=== PATIENT | male | born 1955 | race Caucasian/White ===

== ENCOUNTER 2020-12-03 13:46 | Inpatient (IN) | payer OTHER ==
[~2020-12-03] VITALS: Ht 180.3 cm; Wt 83.7 kg
--- NOTE | 2020-12-03 13:55 | NUR ---
CECY RN: DELAY IN EKG D/T TREMOR. TECH TO ATTEMPT IN ROOM
--- NOTE | 2020-12-03 14:13 | NUR ---
PT BIB SON VIA POV. PER PT HE HAS BEEN SOB X TWO WEEKS, WORSENING TODAY. +PRODUCTIVE COUGH, CHILLS, FEVER, AND CHEST PAIN. PT ALSO REPORTS TAKING TYLENOL THIS AM. PT RESTING IN RNEY, MONITORING IN PLACE, EKG DONE, NADN AT THIS TIME, PT PLACED ON 1L O2 NC, OX SAT NOW AT 96%, DR. SPENCER AT BEDSIDE, [facility].
[2020-12-03] MEDS ORDERED: ACETAMINOPHEN 500 MG TABLET ONE (14:23)
[2020-12-03] MEDS ORDERED: ACETAMINOPHEN 500 MG TABLET PO ONE (14:30)
[2020-12-03] MEDS ORDERED: CEFTRIAXONE PMX 1GM/50ML 50 ML ONE (14:50)
[2020-12-03 15:00] LABS: BASOPHILS % (AUTO) 0 % (0-1); EOSINOPHILS % (AUTO) 0 % (1-7); LYMPHOCYTES % (AUTO) 5 % (22-44); MEAN CORPUSCULAR HEMOGLOBIN 29.7 pg (27.5-34.5); MEAN PLATELET VOLUME 8.4 fL (7.4-10.4); MONOCYTES % (AUTO) 5 % (2-9); NEUTROPHILS % (AUTO) 90 % (42-75); PLATELET COUNT 307 x10^3/uL (130-400); RED BLOOD COUNT 4.16 x10^6/uL (4.38-5.82); RED CELL DISTRIBUTION WIDTH 14.1 % (9.4-14.8)
[2020-12-03] MEDS ORDERED: CEFTRIAXONE PMX 1GM/50ML 50 ML IV ONE (15:00)
[2020-12-03 15:01] LABS: PLATELET (DIC) 310 x10^3/uL (130-400)
[2020-12-03 15:07] LABS: ALANINE AMINOTRANSFERASE 57 U/L (12-78); ALBUMIN 2.6 g/dL (3.4-5.0); ANION GAP 12 mmol/L (5-15); CALCIUM 8.4 mg/dL (8.5-10.1); CHLORIDE 98 mmol/L (98-107); CREATININE 1.06 mg/dL (0.7-1.3)
[2020-12-03 15:12] LABS: D-DIMER (DIC) 1.57 ug/mlFEU (0.00-0.52); PROTIME 11.2 Seconds (9.6-11.5); PTT 29 Seconds (25-31)
[2020-12-03 15:13] LABS: FIBRINOGEN > 713 mg/dL (200-340)
[2020-12-03 15:14] LABS: ALKALINE PHOSPHATASE 98 U/L (45-117); BILIRUBIN,TOTAL 0.5 mg/dL (0.2-1.0); TOTAL PROTEIN 7.5 g/dL (6.4-8.2)
[2020-12-03] MEDS ORDERED: KETOROLAC 30 MG/1 ML IVPush ONE (15:30)
[2020-12-03 15:31] LABS: MD SCAN
[2020-12-03] MEDS ORDERED: OMNIPAQUE 350 MG/ML, 75ML BOTTLE ONE (16:21)
[2020-12-03] MEDS: DOXYCYCLINE 100 MG in DEXTROSE 5% 250 ML IV SCH (16:40)
[2020-12-03] MEDS ORDERED: KETOROLAC 30 MG/1 ML ONE (16:42)
[2020-12-03] MEDS ORDERED: PHARMACY MAY ADJ FOR RENAL FX MC PRN (17:30)
[2020-12-03 18:00] VITALS: BP 105/70
[2020-12-03] MEDS ORDERED: POTASSIUM CHLORIDE 20 MEQ TAB.ER.PRT PO ONE (18:00)
[2020-12-03] MEDS: ENOXAPARIN 80 MG/0.8 ML SQ SCH (18:30)
[2020-12-03] MEDS: CHOLECALCIFEROL 1,000 UNIT TABLET PO SCH (18:41)
[2020-12-03 19:03] VITALS: BP 115/74
[2020-12-03] MEDS: ASCORBIC ACID 500 MG TABLET PO SCH (21:00)
[2020-12-03 22:09] LABS: RAPID INFLUENZA A Negative (Negative); RAPID INFLUENZA B Negative (Negative)
[2020-12-04 02:05] VITALS: BP 131/87
[2020-12-04] MEDS: ACETAMINOPHEN 325 MG TABLET PO PRN ×4 (03:00→20:26)
[2020-12-04] MEDS: DOXYCYCLINE 100 MG in DEXTROSE 5% 250 ML IV SCH ×2 (03:00→17:26)
[2020-12-04 04:54] LABS: BASOPHILS % (AUTO) 0 % (0-1); EOSINOPHILS % (AUTO) 0 % (1-7); LYMPHOCYTES % (AUTO) 7 % (22-44); MEAN CORPUSCULAR HGB CONC 34.1 g/dL (33.2-36.2); MEAN PLATELET VOLUME 8.1 fL (7.4-10.4); MONOCYTES % (AUTO) 5 % (2-9); NEUTROPHILS % (AUTO) 88 % (42-75); PLATELET COUNT 311 x10^3/uL (130-400); RED BLOOD COUNT 3.86 x10^6/uL (4.38-5.82); RED CELL DISTRIBUTION WIDTH 14.5 % (9.4-14.8)
[2020-12-04 04:56] LABS: MD NO
[2020-12-04 05:04] LABS: MICROSCOPIC INDICATED
[2020-12-04 05:09] LABS: CHLORIDE 99 mmol/L (98-107)
[2020-12-04] MEDS: ENOXAPARIN 80 MG/0.8 ML SQ SCH ×2 (05:26→17:26)
[2020-12-04 05:30] LABS: ALANINE AMINOTRANSFERASE 72 U/L (12-78); ALBUMIN 2.5 g/dL (3.4-5.0); ALKALINE PHOSPHATASE 90 U/L (45-117); ANION GAP 8 mmol/L (5-15); BILIRUBIN,TOTAL 0.4 mg/dL (0.2-1.0); CALCIUM 8.5 mg/dL (8.5-10.1); CREATINE KINASE, TOTAL 249 U/L (39-308); CREATININE 1.13 mg/dL (0.7-1.3); TOTAL PROTEIN 7.2 g/dL (6.4-8.2)
[2020-12-04] MEDS ORDERED: LISI20TA21 PO (06:09)
[2020-12-04] MEDS ORDERED: ROSU10TA2 PO (06:09)
[2020-12-04] MEDS ORDERED: BENZONATATE 100 MG CAPSULE PO PRN (06:30)
[2020-12-04 07:45] VITALS: BP 132/83
[2020-12-04] MEDS: ASCORBIC ACID 500 MG TABLET PO SCH ×2 (09:26→20:26)
[2020-12-04] MEDS: ZINC SULFATE 220 MG CAPSULE PO SCH (09:26)
[2020-12-04] MEDS: CHOLECALCIFEROL 1,000 UNIT TABLET PO SCH (09:26)
[2020-12-04 13:08] VITALS: BP 122/77
[2020-12-04] MEDS: BENZONATATE 100 MG CAPSULE PO SCH ×2 (15:32→20:26)
[2020-12-04] MEDS: CEFTRIAXONE PMX 1GM/50ML 50 ML IV SCH (15:32)
[2020-12-04] MEDS ORDERED: IBUPROFEN 200 MG TABLET PO PRN (17:30)
[2020-12-04 19:24] VITALS: BP 108/66
[2020-12-05] MEDS ORDERED: IBUPROFEN 600 MG TABLET ONE (01:06)
[2020-12-05 02:17] VITALS: BP 100/61
[2020-12-05] MEDS: DOXYCYCLINE 100 MG in DEXTROSE 5% 250 ML IV SCH ×2 (04:00→17:39)
[2020-12-05 05:54] LABS: BASOPHILS % (AUTO) 0 % (0-1); EOSINOPHILS % (AUTO) 1 % (1-7); LYMPHOCYTES % (AUTO) 8 % (22-44); MEAN CORPUSCULAR HEMOGLOBIN 30.1 pg (27.5-34.5); MEAN CORPUSCULAR HGB CONC 34.6 g/dL (33.2-36.2); MEAN PLATELET VOLUME 8.5 fL (7.4-10.4); MONOCYTES % (AUTO) 5 % (2-9); NEUTROPHILS % (AUTO) 85 % (42-75); PLATELET COUNT 344 x10^3/uL (130-400); RED BLOOD COUNT 3.99 x10^6/uL (4.38-5.82); RED CELL DISTRIBUTION WIDTH 14.1 % (9.4-14.8)
[2020-12-05 05:56] LABS: MD NO
[2020-12-05 06:10] LABS: CHLORIDE 99 mmol/L (98-107); D-DIMER 1.06 ug/mlFEU (0.00-0.52); INTERNATIONAL NORMALIZED RATIO 1.02 (0.93-1.1); PROTHROMBIN TIME 10.9 Seconds (9.6-11.5)
[2020-12-05 06:13] LABS: FIBRINOGEN > 713 mg/dL (200-340)
[2020-12-05 06:48] LABS: ANION GAP 6 mmol/L (5-15); CALCIUM 8.9 mg/dL (8.5-10.1); CREATINE KINASE, TOTAL 301 U/L (39-308); CREATININE 1.08 mg/dL (0.7-1.3)
[2020-12-05 07:29] VITALS: BP 118/75
[2020-12-05] MEDS: ENOXAPARIN 80 MG/0.8 ML SQ SCH ×2 (09:00→20:34)
[2020-12-05] MEDS: CHOLECALCIFEROL 1,000 UNIT TABLET PO SCH (09:45)
[2020-12-05] MEDS: BENZONATATE 100 MG CAPSULE PO SCH ×3 (09:45→20:30)
[2020-12-05] MEDS: THIAMINE 100MG TABLET PO SCH ×2 (09:45→20:29)
[2020-12-05] MEDS: ZINC SULFATE 220 MG CAPSULE PO SCH (09:46)
[2020-12-05] MEDS: ASCORBIC ACID 500 MG TABLET PO SCH ×2 (09:46→20:29)
[2020-12-05] MEDS: DEXAMETHASONE 4 MG/ML, 1ML IVPush SCH (09:46)
[2020-12-05 12:24] VITALS: BP 124/81
[2020-12-05] MEDS: CEFTRIAXONE PMX 1GM/50ML 50 ML IV SCH (15:38)
[2020-12-05] MEDS ORDERED: REMDESIVIR 200 MG in SODIUM CHLORIDE 0.9% 250 ML IVPB ONE (17:30)
[2020-12-05 19:54] VITALS: BP 127/80
[2020-12-05] MEDS: MELATONIN 5 MG TABLET PO SCH (20:29)
[2020-12-06 01:09] VITALS: BP 124/80
[2020-12-06] MEDS: DOXYCYCLINE 100 MG in DEXTROSE 5% 250 ML IV SCH ×2 (03:40→16:30)
[2020-12-06 06:00] LABS: BASOPHILS % (AUTO) 0 % (0-1); EOSINOPHILS % (AUTO) 0 % (1-7); LYMPHOCYTES % (AUTO) 11 % (22-44); MEAN CORPUSCULAR HGB CONC 34.4 g/dL (33.2-36.2); MEAN PLATELET VOLUME 8.6 fL (7.4-10.4); MONOCYTES % (AUTO) 13 % (2-9); NEUTROPHILS % (AUTO) 76 % (42-75); PLATELET COUNT 385 x10^3/uL (130-400); RED CELL DISTRIBUTION WIDTH 14.1 % (9.4-14.8)
[2020-12-06 06:09] LABS: ALBUMIN 2.2 g/dL (3.4-5.0); ANION GAP 8 mmol/L (5-15); CALCIUM 8.7 mg/dL (8.5-10.1); CHLORIDE 102 mmol/L (98-107)
[2020-12-06 06:12] LABS: ALANINE AMINOTRANSFERASE 107 U/L (12-78); ALKALINE PHOSPHATASE 85 U/L (45-117); BILIRUBIN,TOTAL 0.3 mg/dL (0.2-1.0); CREATINE KINASE, TOTAL 136 U/L (39-308); CREATININE 0.79 mg/dL (0.7-1.3); TOTAL PROTEIN 6.7 g/dL (6.4-8.2)
[2020-12-06 07:44] VITALS: BP 124/79
[2020-12-06 07:59] LABS: MD SCAN
[2020-12-06] MEDS ORDERED: POTASSIUM CHLORIDE 20 MEQ TAB.ER.PRT PO ONE ×2 (08:00→16:00)
[2020-12-06] MEDS: INSULIN LISPRO 100 UNITS/ML, PEN SQ-INSULIN SCH ×4 (09:00→22:20)
[2020-12-06] MEDS: CHOLECALCIFEROL 1,000 UNIT TABLET PO SCH (09:14)
[2020-12-06] MEDS: DEXAMETHASONE 4 MG/ML, 1ML IVPush SCH (09:15)
[2020-12-06] MEDS: ASCORBIC ACID 500 MG TABLET PO SCH ×2 (09:15→22:16)
[2020-12-06] MEDS: BENZONATATE 100 MG CAPSULE PO SCH (09:15)
[2020-12-06] MEDS: THIAMINE 100MG TABLET PO SCH ×2 (09:15→22:15)
[2020-12-06] MEDS: ZINC SULFATE 220 MG CAPSULE PO SCH (09:15)
[2020-12-06] MEDS: ENOXAPARIN 80 MG/0.8 ML SQ SCH (09:18)
[2020-12-06 14:17] VITALS: BP 142/88
[2020-12-06] MEDS: CEFTRIAXONE PMX 1GM/50ML 50 ML IV SCH (15:00)
[2020-12-06] MEDS: REMDESIVIR 100 MG in SODIUM CHLORIDE 0.9% 250 ML IVPB SCH (18:01)
[2020-12-06 20:28] VITALS: BP 132/83
[2020-12-06] MEDS: MELATONIN 5 MG TABLET PO SCH (22:16)
[2020-12-06] MEDS: ACETAMINOPHEN 325 MG TABLET PO PRN (22:31)
[2020-12-07 01:43] VITALS: BP 133/86
[2020-12-07] MEDS: DOXYCYCLINE 100 MG in DEXTROSE 5% 250 ML IV SCH ×2 (03:57→16:47)
[2020-12-07 05:27] LABS: BASOPHILS % (AUTO) 1 % (0-1); EOSINOPHILS % (AUTO) 0 % (1-7); LYMPHOCYTES % (AUTO) 9 % (22-44); MEAN CORPUSCULAR HEMOGLOBIN 29.7 pg (27.5-34.5); MEAN CORPUSCULAR HGB CONC 34.1 g/dL (33.2-36.2); MEAN PLATELET VOLUME 8.6 fL (7.4-10.4); MONOCYTES % (AUTO) 12 % (2-9); NEUTROPHILS % (AUTO) 78 % (42-75); PLATELET COUNT 404 x10^3/uL (130-400); RED BLOOD COUNT 3.79 x10^6/uL (4.38-5.82); RED CELL DISTRIBUTION WIDTH 13.8 % (9.4-14.8)
[2020-12-07 05:29] LABS: CHLORIDE 109 mmol/L (98-107)
[2020-12-07 05:44] LABS: ALANINE AMINOTRANSFERASE 121 U/L (12-78); ALBUMIN 2.1 g/dL (3.4-5.0); ALKALINE PHOSPHATASE 77 U/L (45-117); ANION GAP 10 mmol/L (5-15); BILIRUBIN,TOTAL 0.3 mg/dL (0.2-1.0); CALCIUM 8.2 mg/dL (8.5-10.1); CREATINE KINASE, TOTAL 104 U/L (39-308); CREATININE 0.74 mg/dL (0.7-1.3); TOTAL PROTEIN 6.3 g/dL (6.4-8.2)
[2020-12-07 06:15] LABS: MD SCAN
[2020-12-07] MEDS: INSULIN LISPRO 100 UNITS/ML, PEN SQ-INSULIN SCH ×4 (07:00→20:24)
[2020-12-07 08:06] LABS: INTERNATIONAL NORMALIZED RATIO 0.99 (0.93-1.1); PROTHROMBIN TIME 10.6 Seconds (9.6-11.5)
[2020-12-07] MEDS ORDERED: ENOXAPARIN 80 MG/0.8 ML SQ SCH (09:00)
[2020-12-07 09:38] VITALS: BP 126/88
[2020-12-07] MEDS: CHOLECALCIFEROL 1,000 UNIT TABLET PO SCH (09:48)
[2020-12-07] MEDS: ZINC SULFATE 220 MG CAPSULE PO SCH (09:48)
[2020-12-07] MEDS: THIAMINE 100MG TABLET PO SCH ×2 (09:48→20:23)
[2020-12-07] MEDS: ASCORBIC ACID 500 MG TABLET PO SCH ×2 (09:48→20:23)
[2020-12-07] MEDS: DEXAMETHASONE 4 MG/ML, 1ML IVPush SCH (09:49)
[2020-12-07] MEDS: ENOXAPARIN 60 MG/0.6 ML SQ SCH (10:02)
[2020-12-07 15:04] VITALS: BP 142/88
[2020-12-07] MEDS: CEFTRIAXONE PMX 1GM/50ML 50 ML IV SCH (15:14)
[2020-12-07] MEDS: GUAIFENESIN/COD200MG-20MG/10ML LIQUID PO PRN ×2 (15:14→20:23)
[2020-12-07] MEDS: REMDESIVIR 100 MG in SODIUM CHLORIDE 0.9% 250 ML IVPB SCH (18:28)
[2020-12-07 19:34] VITALS: BP 120/72
[2020-12-07] MEDS: MELATONIN 5 MG TABLET PO SCH (20:23)
[2020-12-07] MEDS: ACETAMINOPHEN 325 MG TABLET PO PRN (20:23)
[2020-12-08 00:55] VITALS: BP 115/72
[2020-12-08] MEDS: DOXYCYCLINE 100 MG in DEXTROSE 5% 250 ML IV SCH (04:10)
[2020-12-08 06:03] LABS: CHLORIDE 108 mmol/L (98-107)
[2020-12-08 06:11] VITALS: BP 144/87
[2020-12-08 06:12] LABS: ALANINE AMINOTRANSFERASE 105 U/L (12-78); ALBUMIN 2.2 g/dL (3.4-5.0); ALKALINE PHOSPHATASE 69 U/L (45-117); ANION GAP 7 mmol/L (5-15); BILIRUBIN,TOTAL 0.3 mg/dL (0.2-1.0); CALCIUM 8.9 mg/dL (8.5-10.1); CREATINE KINASE, TOTAL 70 U/L (39-308); CREATININE 0.78 mg/dL (0.7-1.3)
[2020-12-08] MEDS: INSULIN LISPRO 100 UNITS/ML, PEN SQ-INSULIN SCH ×4 (07:00→21:00)
[2020-12-08] MEDS: DEXAMETHASONE 4 MG/ML, 1ML IVPush SCH (09:20)
[2020-12-08] MEDS: CHOLECALCIFEROL 1,000 UNIT TABLET PO SCH (09:20)
[2020-12-08] MEDS: ZINC SULFATE 220 MG CAPSULE PO SCH (09:22)
[2020-12-08] MEDS: THIAMINE 100MG TABLET PO SCH ×2 (09:22→21:00)
[2020-12-08] MEDS: ASCORBIC ACID 500 MG TABLET PO SCH ×2 (09:23→21:00)
[2020-12-08] MEDS: ENOXAPARIN 60 MG/0.6 ML SQ SCH (09:24)
[2020-12-08] MEDS: GUAIFENESIN/COD200MG-20MG/10ML LIQUID PO PRN ×2 (10:37→22:51)
[2020-12-08 11:31] VITALS: BP 152/90
[2020-12-08] MEDS: CEFTRIAXONE PMX 1GM/50ML 50 ML IV SCH (14:54)
[2020-12-08] MEDS: REMDESIVIR 100 MG in SODIUM CHLORIDE 0.9% 250 ML IVPB SCH (17:27)
[2020-12-08 19:41] VITALS: BP 135/85
[2020-12-08] MEDS: MELATONIN 5 MG TABLET PO SCH (21:00)
[2020-12-08] MEDS: DOXYCYCLINE 100MG TABLET PO SCH (21:00)
[2020-12-08] MEDS: ACETAMINOPHEN 325 MG TABLET PO PRN (22:51)
[2020-12-09 02:00] VITALS: BP 158/85
[2020-12-09 06:02] LABS: INTERNATIONAL NORMALIZED RATIO 0.98 (0.93-1.1); PROTHROMBIN TIME 10.5 Seconds (9.6-11.5)
[2020-12-09 06:05] LABS: ALBUMIN 2.1 g/dL (3.4-5.0); ANION GAP 7 mmol/L (5-15); CALCIUM 8.7 mg/dL (8.5-10.1); CHLORIDE 106 mmol/L (98-107)
[2020-12-09 06:11] LABS: ALANINE AMINOTRANSFERASE 129 U/L (12-78); ALKALINE PHOSPHATASE 63 U/L (45-117); BILIRUBIN,TOTAL 0.3 mg/dL (0.2-1.0); CREATINE KINASE, TOTAL 52 U/L (39-308); CREATININE 0.65 mg/dL (0.7-1.3); TOTAL PROTEIN 5.9 g/dL (6.4-8.2)
[2020-12-09 06:39] VITALS: BP 125/74
[2020-12-09] MEDS: INSULIN LISPRO 100 UNITS/ML, PEN SQ-INSULIN SCH ×4 (07:00→20:40)
[2020-12-09] MEDS: CHOLECALCIFEROL 1,000 UNIT TABLET PO SCH (08:47)
[2020-12-09] MEDS: THIAMINE 100MG TABLET PO SCH ×2 (08:49→20:40)
[2020-12-09] MEDS: ASCORBIC ACID 500 MG TABLET PO SCH ×2 (08:49→20:39)
[2020-12-09] MEDS: DOXYCYCLINE 100MG TABLET PO SCH ×2 (08:50→20:40)
[2020-12-09] MEDS: ENOXAPARIN 60 MG/0.6 ML SQ SCH (08:52)
[2020-12-09] MEDS: DEXAMETHASONE 4 MG/ML, 1ML IVPush SCH (08:53)
[2020-12-09] MEDS: ZINC SULFATE 220 MG CAPSULE PO SCH (09:00)
[2020-12-09] MEDS: GUAIFENESIN/COD200MG-20MG/10ML LIQUID PO PRN ×2 (09:00→20:49)
[2020-12-09 11:43] VITALS: BP 118/77
[2020-12-09] MEDS: CEFTRIAXONE PMX 1GM/50ML 50 ML IV SCH (15:20)
[2020-12-09] MEDS: REMDESIVIR 100 MG in SODIUM CHLORIDE 0.9% 250 ML IVPB SCH (17:22)
[2020-12-09 19:54] VITALS: BP 117/76
[2020-12-09] MEDS: MELATONIN 5 MG TABLET PO SCH (20:40)
[2020-12-09] MEDS: ACETAMINOPHEN 325 MG TABLET PO PRN (20:49)
[2020-12-10 02:46] VITALS: BP 131/81
[2020-12-10 05:46] LABS: MEAN CORPUSCULAR HEMOGLOBIN 29.9 pg (27.5-34.5); MEAN CORPUSCULAR HGB CONC 34.1 g/dL (33.2-36.2); MEAN PLATELET VOLUME 8.5 fL (7.4-10.4); PLATELET COUNT 459 x10^3/uL (130-400); RED BLOOD COUNT 3.65 x10^6/uL (4.38-5.82)
[2020-12-10 05:54] LABS: ANION GAP 6 mmol/L (5-15); CALCIUM 8.2 mg/dL (8.5-10.1); CHLORIDE 106 mmol/L (98-107); CREATININE 0.64 mg/dL (0.7-1.3)
[2020-12-10 05:55] LABS: D-DIMER 1.02 ug/mlFEU (0.00-0.52)
[2020-12-10 06:01] LABS: CREATINE KINASE, TOTAL 53 U/L (39-308)
[2020-12-10 06:26] VITALS: BP 132/53
[2020-12-10 06:40] LABS: MD YES
[2020-12-10 06:42] LABS: ANISOCYTOSIS 1+; BAND#(MANUAL) 0.14 x10^3/uL; BANDS%(MANUAL) 1 % (0-7); ECHINOCYTES 1+; LYMPH#(MANUAL) 2.72 x10^3/uL (1-3.4); LYMPHS% (MANUAL) 19 % (22-44); METAMYELOCYTES# (MANUAL) 0.14 x10^3/uL (0-0); METAMYELOCYTES% (MANUAL) 1 % (0-1); MONOS#(MANUAL) 0.72 x10^3/uL (0.3-2.7); MONOS% (MANUAL) 5 % (2-9); MYELOCYTES# (MANUAL) 0.72 x10^3/uL (0-0); MYELOCYTES% (MANUAL) 5 % (0-0); SEG#(MANUAL) 9.87 x10^3/uL (1.8-6.8); SEGS% (MANUAL) 69 % (42-75)
[2020-12-10 06:44] LABS: <PLATELET ESTIMATE> INCREASED; <PLT MORPHOLOGY> NORMAL PLT MORPH; POLYCHROMASIA 1+
[2020-12-10] MEDS: INSULIN LISPRO 100 UNITS/ML, PEN SQ-INSULIN SCH ×4 (07:00→20:44)
[2020-12-10] MEDS ORDERED: DEXAMETHASONE 4 MG TABLET ONE (08:49)
[2020-12-10] MEDS: CHOLECALCIFEROL 1,000 UNIT TABLET PO SCH (09:07)
[2020-12-10] MEDS: ASCORBIC ACID 500 MG TABLET PO SCH ×2 (09:09→20:41)
[2020-12-10] MEDS: THIAMINE 100MG TABLET PO SCH ×2 (09:10→20:40)
[2020-12-10] MEDS: ZINC SULFATE 220 MG CAPSULE PO SCH (09:10)
[2020-12-10] MEDS: DOXYCYCLINE 100MG TABLET PO SCH ×2 (09:10→20:41)
[2020-12-10] MEDS: ENOXAPARIN 60 MG/0.6 ML SQ SCH (09:13)
[2020-12-10] MEDS: DEXAMETHASONE INTENSOL 1 MG/ML ORAL SOL PO SCH (10:17)
[2020-12-10 11:43] VITALS: BP 109/72
[2020-12-10] MEDS: CEFTRIAXONE PMX 1GM/50ML 50 ML IV SCH (14:32)
[2020-12-10 19:11] VITALS: BP 111/73
[2020-12-10] MEDS: ACETAMINOPHEN 325 MG TABLET PO PRN (20:41)
[2020-12-10] MEDS: MELATONIN 5 MG TABLET PO SCH (20:41)
[2020-12-10] MEDS: GUAIFENESIN/COD200MG-20MG/10ML LIQUID PO PRN (20:43)
[2020-12-11 01:28] VITALS: BP 132/85
[2020-12-11 06:30] LABS: INTERNATIONAL NORMALIZED RATIO 0.96 (0.93-1.1); PROTHROMBIN TIME 10.3 Seconds (9.6-11.5)
[2020-12-11 06:42] VITALS: BP 142/86
[2020-12-11] MEDS: INSULIN LISPRO 100 UNITS/ML, PEN SQ-INSULIN SCH ×3 (08:00→16:40)
[2020-12-11] MEDS: ENOXAPARIN 60 MG/0.6 ML SQ SCH (09:30)
[2020-12-11] MEDS: DEXAMETHASONE INTENSOL 1 MG/ML ORAL SOL PO SCH (10:11)
[2020-12-11] MEDS: DOXYCYCLINE 100MG TABLET PO SCH (10:12)
[2020-12-11] MEDS: THIAMINE 100MG TABLET PO SCH (10:15)
[2020-12-11] MEDS: CHOLECALCIFEROL 1,000 UNIT TABLET PO SCH (10:15)
[2020-12-11] MEDS: ZINC SULFATE 220 MG CAPSULE PO SCH (10:15)
[2020-12-11] MEDS: ASCORBIC ACID 500 MG TABLET PO SCH (10:15)
[2020-12-11 14:12] VITALS: BP 143/84
[2020-12-11] MEDS ORDERED: Guaifenesin/Cod200mg-20MG/10ML PO (14:47)
[2020-12-11] MEDS ORDERED: ACET325T26 PO (14:47)
[2020-12-11] MEDS ORDERED: DEXA0.5D PO (14:47)
[2020-12-11] MEDS ORDERED: MELA5TAB14 PO (14:47)
[2020-12-11] MEDS ORDERED: DOXY100T PO (14:47)
[2020-12-11] MEDS ORDERED: ZINC220C8 PO (14:47)
[2020-12-11] MEDS ORDERED: THIA100T67 PO (14:47)
[2020-12-11] MEDS ORDERED: CHOL10003 PO (14:47)
[2020-12-11] MEDS ORDERED: AMLO-150 PO (14:47)
[2020-12-11] MEDS ORDERED: ASCO500T9 PO (14:47)
[2020-12-11] MEDS: CEFTRIAXONE PMX 1GM/50ML 50 ML IV SCH (15:18)
== END 2020-12-11 17:04 | disposition home or self-care (01) | DRG 871 ==
LOC: ED 17:15 → EDIP 17:20 → 4EST 17:22
PROVIDERS: ADMIT Emergency Medicine; ATTEND Internal Medicine
PROC: XW033E5 Introduction of Remdesivir Anti-infective into Peripheral Vein, Percutaneous Approach, New Technology Group 5 (ICD-10-PCS; principal; 2020-12-05)
DX: A41.89 Other specified sepsis (principal); U07.1 COVID-19; J12.82 Pneumonia due to coronavirus disease 2019; J96.01 Acute respiratory failure with hypoxia; D68.59 Other primary thrombophilia; E87.1 Hypo-osmolality and hyponatremia; E87.3 Alkalosis; E83.39 Other disorders of phosphorus metabolism; E87.6 Hypokalemia; I10 Essential (primary) hypertension; I77.810 Thoracic aortic ectasia; K44.9 Diaphragmatic hernia without obstruction or gangrene; Z87.891 Personal history of nicotine dependence; R59.0 Localized enlarged lymph nodes
CPT/HCPCS: 36415; 36600; 71045; 71275; 80048; 80053; 81001; 82550; 82607; 82728; 82803; 82962; 83605; 83615; 83735; 84100; 84145; 84443; 85025; 85049; 85379; 85384; 85610; 85730; 86140; 87040; 87070; 87205; 87400; 93005; 96365; 96375; 99285; G0378; J0696; J1100; J1650; J1885; J7060; Q9967; J1815; J7050